=== PATIENT | female | born 1995 | race Caucasian/White ===

== ENCOUNTER 2016-08-22 14:25 | Emergency (ER) | payer OTHER ==
[2016-08-22 16:59] LABS: RED BLOOD COUNT 4.79 M/UL (4.00-5.10)
[2016-08-22 17:14] LABS: BUN/CREATININE RATIO 10 (0-10)
== END 2016-08-22 18:28 | disposition home or self-care (01) ==
LOC: ER1 14:25
PROVIDERS: Physician Assistant
DX: N93.9 Abnormal uterine and vaginal bleeding, unspecified (principal); R10.2 Pelvic and perineal pain; Z88.1 Allergy status to other antibiotic agents; Z88.8 Allergy status to other drugs, medicaments and biological substances
CPT/HCPCS: 36415; 80053; 84703; 85025; 99283